=== PATIENT | female | born 1940 | race Caucasian/White ===

== ENCOUNTER 2024-12-23 14:47 | Inpatient (IN) | payer MEDICARE, BC ==
--- NOTE | 2024-12-23 15:59 | ED ---
Abdominal Pain HPI - General Chief Complaint: Abdominal Pain Stated Complaint: Abd Pain/Vomiting Time Seen by Provider: 12/23/24 15:57 Source: patient, family (), RN notes reviewed Mode of arrival: ambulatory Limitations: no limitations - History of Present Illness Initial Comments: 84-year-old female with no reported past medical history presented to the ER for evaluation of abdominal pain. Patient sent by urgent care as she states she had x-ray completed there concerning of a bowel blockage. She reports for the past 2 to 3 days she has had cramping lower abdominal discomfort. She also reports a decreased appetite along with nausea and vomiting. She states she has not had a bowel movement in the past 3 days and is passing a very little amount of gas. She denies any hematochezia or coffee-ground emesis. She denies any previous bowel surgeries. Denies any fevers, chills, chest pain, shortness of breath, dizziness, lightheadedness, urinary complaints. Patient does admit her abdomen appears distended. She has not taken anything for her current symptoms. - Related Data Home Medications Medication Instructions Recorded Confirmed Biotin [Biotin Disolve] 10,000 mcg PO DAILY 12/23/24 12/23/24 Calcium Carbonate [Calcium] 600 mg PO DAILY 12/23/24 12/23/24 L.acidoph,Paracasei, B.lactis 1 cap PO DAILY 12/23/24 12/23/24 [Probiotic] Multivitamins, Thera [Multivitamin 1 tab PO DAILY 12/23/24 12/23/24 (formulary)] Vitamin B Complex 1 cap PO DAILY 12/23/24 12/23/24 flaxseed oiL [Flax Oil] 1,300 mg PO DAILY 12/23/24 12/23/24 Allergies Allergy/AdvReac Type Severity Reaction Status Date / Time amoxicillin Allergy Nausea & Verified 12/23/24 16:47 Vomiting & Diarrhea Review of Systems ROS Statement: Those systems with pertinent positive or pertinent negative responses have been documented in the HPI. ROS Other: All systems not noted in ROS Statement are negative. Past Medical History History of Any Multi-Drug Resistant Organisms: None Reported Past Surgical History: Joint Replacement Additional Past Surgical History / Comment(s): R shoulder replacement 2011 Past Psychological History: No Psychological Hx Reported Smoking Status: Never smoker Past Alcohol Use History: Occasional Past Drug Use History: None Reported General Exam Limitations: no limitations General appearance: alert, in no apparent distress Respiratory exam: Present: normal lung sounds bilaterally. Absent: respiratory distress, wheezes, rales, rhonchi, stridor Cardiovascular Exam: Present: regular rate, normal rhythm, normal heart sounds. Absent: systolic murmur, diastolic murmur, rubs, gallop, clicks GI/Abdominal exam: Present: soft, distended (Mild lower abdomen), tenderness (Lower abdomen), normal bowel sounds Extremities exam: Present: normal inspection, full ROM, normal capillary refill. Absent: tenderness, pedal edema, joint swelling, calf tenderness Neurological exam: Present: alert, oriented X3, CN II-XII intact Skin exam: Present: warm, dry, intact, normal color. Absent: rash Course Vital Signs 12/23/24 12/23/24 15:00 18:34 Temperature 98.9 F Pulse Rate 80 89 Respiratory 18 16 Rate Blood Pressure 138/82 102/64 O2 Sat by Pulse 98 95 Oximetry - Reevaluation(s) Reevaluation #1: 12/23/24 18:20 Case discussed with on-call general surgery, Dr. Nobles. He is agreeable with NG tube placement. He is requesting admission to medicine with general surgery on consult. Reevaluation #2: 12/23/24 18:26 Case discussed with dharmesh Wetzel, for admission Medical Decision Making - Medical Decision Making Was pt. sent in by a medical professional or institution (, PA, LEARNING SUPPORT AIDE, urgent care, hospital, or senior care...) When possible be specific @ -Patient sent by urgent care for evaluation of abdominal pain with concern of blockage on x-ray Did you speak to anyone other than the patient for history (EMS, parent, family, police, friend...)? What history was obtained from this source @ -, at bedside, aiding in HPI and past medical history. Did you review nursing and triage notes (agree or disagree)? Why? @ -I reviewed and agree with nursing and triage notes Were old charts reviewed (outside hosp., previous admission, EMS record, old EKG, old radiological studies, urgent care reports/EKG's, senior care records)? Report findings @ -No old charts were reviewed Differential Diagnosis (chest pain, altered mental status, abdominal pain women, abdominal pain men, vaginal bleeding, weakness, fever, dyspnea, syncope, headache, dizziness, GI bleed, back pain, seizure, CVA, palpatations, mental health, musculoskeletal)? @ -Differential Abdominal Pain Women:Appendicitis, Cholecystitis, diverticulosis, ischemic bowel, pancreatitis, hepatitis, UTI, gastroenteritis, AAA, incarcerated hernia, bowel obstruction, constipation, inflammatory bowel, hepatitis, peptic ulcer disease, splenic infarction, perforated viscus, vulvitis, ovarian torsion, PID, kidney stone, placenta abruption, this is not meant to be an all-inclusive list EKG interpreted by me (3pts min.). @ -As above X-rays interpreted by me (1pt min.). @ -None done CT interpreted by me (1pt min.). @ -CT abdomen pelvis with findings consistent of the distal small bowel obstruction with dilation up to 3.8 cm. Transition point believed to be in the right pelvis. U/S interpreted by me (1pt. min.). @ -None done What testing was considered but not performed or refused? (CT, X-rays, U/S, labs)? Why? @ -None What meds were considered but not given or refused? Why? @ -None Did you discuss the management of the patient with other professionals (professionals i.e. , PA, LEARNING SUPPORT AIDE, lab, RT, psych nurse, manager social media, narrow gauge engineer, teacher, security vehicle patrol officer, shoe parts caser)? Give summary @ -Yes, Case discussed with on-call general surgery, Dr. Nobles, he agrees with NG tube placement. He was requesting medicine admission with surgery on consult. Case also discussed with sound physician, Dr. Malhotra, for admission. Was smoking cessation discussed for >3mins.? @ -No Was critical care preformed (if so, how long)? @ -No Were there social determinants of health that impacted care today? How? (Homelessness, low income, unemployed, alcoholism, drug addiction, transportation, low edu. Level, literacy, decrease access to med. care, residential, rehab)? @ -No Was there de-escalation of care discussed even if they declined (Discuss DNR or withdrawal of care, Hospice)? DNR status @ -No What co-morbidities impacted this encounter? (DM, HTN, Smoking, COPD, CAD, Cancer, CVA, ARF, Chemo, Hep., AIDS, mental health diagnosis, sleep apnea, morbid obesity)? @ -Advanced age Was patient admitted / discharged? Hospital course, mention meds given and route, prescriptions, significant lab abnormalities, going to OR and other pertinent info. @ -Admitted. 84-year-old female presented the ER for evaluation of abdominal pain along with nausea and vomiting x 3 days. Upon arrival vital signs stable. Patient in no signs of acute distress nontoxic-appearing. Abdominal exam remarkable for distention and mild tenderness to lower abdomen. No rebound or guarding. Laboratory studies obtained significant for WBC 8.2, hemoglobin 15.3, sodium 136, potassium 4.0. Lactic 1.3. Urinalysis with 2+ ketone and trace protein likely due to to dehydration given nausea and vomiting. CT ab and p nimo performed showing a distal small bowel obstruction with dilation up to 3.8 cm. Transition point believed to be in the right pelvis. EKG showing sinus rhythm. No acute evidence of infarct or ischemia. Patient provided with IV fluid bolus and Zofran for symptom control in the emergency department. Given CT findings, case was discussed with on-call general surgery, , he is agreeable for consultation with medicine admission. Admission accepted by [facility] physician, Dr. Malhotra. NG tube placed. Maintenance fluids ordered. Patient NPO. Patient started on IV Levaquin and Flagyl for infection prophylaxis given amoxicillin allergy. Blood cultures obtained. Patient and patient's family educated on today's findings, all questions answered. Patient agreeable for admission and admitted in stable condition. Case discussed with ED attending, . Undiagnosed new problem with uncertain prognosis? @ -No Drug Therapy requiring intensive monitoring for toxicity (Heparin, Nitro, Insulin, Cardizem)? @ -No Were any procedures done? @ -No Diagnosis/symptom? @ -Small bowel obstruction Acute, or Chronic, or Acute on Chronic? @ -Acute Uncomplicated (without systemic symptoms) or Complicated (systemic symptoms)? @ -Complicated Side effects of treatment? @ -No Exacerbation, Progression, or Severe Exacerbation? @ -No Poses a threat to life or bodily function? How? (Chest pain, USA, MS, pneumonia, PE, COPD, DKA, ARF, appy, cholecystitis, CVA, Diverticulitis, Homicidal, Suicidal, threat to staff... and all critical care pts) @ -Yes, can lead to bowel perforation - Lab Data Result diagrams: 06/05/25 16:31 12/23/24 16:31 Lab Results 12/23/24 12/23/24 12/23/24 Range/Units 16:31 16:31 16:31 WBC 8.21 (4.50-10.00) 10*3/uL RBC 4.90 (4.10-5.20) 10*6/uL Hgb 15.3 H (12.0-15.0) g/dL Hct 45.0 (37.2-46.3) % MCV 91.8 (80.0-97.0) fL MCH 31.2 (27.0-32.0) pg MCHC 34.0 (32.0-37.0) g/dL Plt Count 269 (140-440) 10*3/uL MPV 9.6 (9.5-12.2) fL Immature Gran % (Auto) 0.2 % Neutrophils % 72.9 % Lymphocytes % 16.7 % Monocytes % 9.7 % Eosinophils % 0.1 % Basophils % 0.4 % Immature Gran # 0.02 (0.00-0.04) 10*3/uL Neutrophils # 5.98 (1.80-7.70) 10*3/uL Lymphocytes # 1.37 (0.90-5.00) 10*3/uL Monocytes # 0.80 (0.20-1.00) 10*3/uL Eosinophils # 0.01 L (0.04-0.35) 10*3/uL Basophils # 0.03 (0.00-0.10) 10*3/uL Sodium 136 L (137-145) mmol/L Potassium 4.0 (3.5-5.1) mmol/L Chloride 95 L (98-107) mmol/L Carbon Dioxide 31 H (22-30) mmol/L Anion Gap 10 mmol/L BUN 36 H (7-17) mg/dL Creatinine 0.61 (0.52-1.04) mg/dL Est GFR (CKD-EPI)AfAm >90 (>60 ml/min/1.73 sqM) Est GFR (CKD-EPI)NonAf 84 (>60 ml/min/1.73 sqM) Glucose 112 H (74-99) mg/dL Plasma Lactic Acid Joo 1.3 (0.7-2.0) mmol/L Calcium 9.5 (8.4-10.2) mg/dL Total Bilirubin 1.2 (0.2-1.3) mg/dL AST 35 (14-36) U/L ALT 33 (4-34) U/L Alkaline Phosphatase 72 (38-126) U/L Total Protein 7.8 (6.3-8.2) g/dL Albumin 4.4 (3.5-5.0) g/dL Lipase 72 (23-300) U/L Urine Color Urine Appearance (Clear) Urine pH (5.0-8.0) Ur Specific [place] (1.001-1.035) Urine Protein (Negative) Urine Glucose (UA) (Negative) Urine Ketones (Negative) Urine Blood (Negative) Urine Nitrite (Negative) Urine Bilirubin (Negative) Urine Urobilinogen (<2.0) mg/dL Ur Leukocyte Esterase (Negative) 12/23/24 Range/Units 17:35 WBC (4.50-10.00) 10*3/uL RBC (4.10-5.20) 10*6/uL Hgb (12.0-15.0) g/dL Hct (37.2-46.3) % MCV (80.0-97.0) fL MCH (27.0-32.0) pg MCHC (32.0-37.0) g/dL Plt Count (140-440) 10*3/uL MPV (9.5-12.2) fL Immature Gran % (Auto) % Neutrophils % % Lymphocytes % % Monocytes % % Eosinophils % % Basophils % % Immature Gran # (0.00-0.04) 10*3/uL Neutrophils # (1.80-7.70) 10*3/uL Lymphocytes # (0.90-5.00) 10*3/uL Monocytes # (0.20-1.00) 10*3/uL Eosinophils # (0.04-0.35) 10*3/uL Basophils # (0.00-0.10) 10*3/uL Sodium (137-145) mmol/L Potassium (3.5-5.1) mmol/L Chloride (98-107) mmol/L Carbon Dioxide (22-30) mmol/L Anion Gap mmol/L BUN (7-17) mg/dL Creatinine (0.52-1.04) mg/dL Est GFR (CKD-EPI)AfAm (>60 ml/min/1.73 sqM) Est GFR (CKD-EPI)NonAf (>60 ml/min/1.73 sqM) Glucose (74-99) mg/dL Plasma Lactic Acid Joo (0.7-2.0) mmol/L Calcium (8.4-10.2) mg/dL Total Bilirubin (0.2-1.3) mg/dL AST (14-36) U/L ALT (4-34) U/L Alkaline Phosphatase (38-126) U/L Total Protein (6.3-8.2) g/dL Albumin (3.5-5.0) g/dL Lipase (23-300) U/L Urine Color Yellow Urine Appearance Clear (Clear) Urine pH 5.5 (5.0-8.0) Ur Specific [place] 1.036 H (1.001-1.035) Urine Protein Trace H (Negative) Urine Glucose (UA) Negative (Negative) Urine Ketones 2+ H (Negative) Urine Blood Negative (Negative) Urine Nitrite Negative (Negative) Urine Bilirubin Negative (Negative) Urine Urobilinogen 2.0 (<2.0) mg/dL Ur Leukocyte Esterase Negative (Negative) - EKG Data -: EKG Interpreted by Me EKG Comments: EKG obtained at 16: 15 showing a sinus rhythm. No ST segment elevations or depressions. No T wave inversions. Ventricular rate 76, CT interval 164, QRS duration 88, QT/QTc 368/398 - Radiology Data Radiology results: report reviewed, image reviewed Disposition Clinical Impression: Small bowel obstruction Disposition: ADMITTED IP TO THIS [facility] Condition: Stable Referrals: None,Stated [Primary Care Provider] - 1-2 days Time of Disposition: 18:21
[2024-12-23] MEDS: SODIUM CHLORIDE 0.9% 1,000 ML IV ONE (16:34)
[2024-12-23] MEDS: ONDANSETRON 4 MG/2 ML VIAL IVP STA (16:37)
[2024-12-23 16:57] LABS: Basophils # (A) 0.03 10*3/uL (0.00-0.10); Basophils % (A) 0.4 %; Eosinophils # (A) 0.01 10*3/uL (0.04-0.35); Eosinophils % (A) 0.1 %; HGB 15.3 g/dL (12.0-15.0); Lymphocytes # (A) 1.37 10*3/uL (0.90-5.00); Lymphocytes % (A) 16.7 %; MCH 31.2 pg (27.0-32.0); MCV 91.8 fL (80.0-97.0); Mean Platelet Volume 9.6 fL (9.5-12.2); Monocytes % (A) 9.7 %; Neutrophils # (A) 5.98 10*3/uL (1.80-7.70); Neutrophils % (A) 72.9 %; Platelet Count 269 10*3/uL (140-440); RDW 12.5 % (11.5-14.5); WBC 8.21 10*3/uL (4.50-10.00)
[2024-12-23 17:21] LABS: ALT 33 U/L (4-34); AST 35 U/L (14-36); African American GFR (CKD) >90 (>60 ml/min/1.73 sqM); Albumin 4.4 g/dL (3.5-5.0); Alkaline Phosphatase 72 U/L (38-126); Anion Gap 10 mmol/L; Blood Urea Nitrogen 36 mg/dL (7-17); Calcium 9.5 mg/dL (8.4-10.2); Carbon Dioxide 31 mmol/L (22-30); Chloride 95 mmol/L (98-107); Glucose 112 mg/dL (74-99); Lipase 72 U/L (23-300); Non-African American GFR(CKD) 84 (>60 ml/min/1.73 sqM); Sodium 136 mmol/L (137-145); Total Bilirubin 1.2 mg/dL (0.2-1.3); Total Protein 7.8 g/dL (6.3-8.2)
[2024-12-23 17:43] LABS: Appearance,Urine Clear (Clear); Bilirubin,Urine Negative (Negative); Blood,Urine Negative (Negative); Color,Urine Yellow; Glucose,Urine (UA) Negative (Negative); Ketones,Urine 2+ (Negative); Leukocyte Esterase,Urine Negative (Negative); Nitrite,Urine Negative (Negative); PH, Urine 5.5 (5.0-8.0); Protein,Urine Trace (Negative); Specific Gravity,Urine 1.036 (1.001-1.035)
[2024-12-23] MEDS: METOCLOPRAMIDE 5 MG/ML 2 ML VIAL IVP STA (17:59)
--- NOTE | 2024-12-23 17:59 | CT ---
EXAMINATION TYPE: CT abdomen pelvis w con DATE OF EXAM: 12/23/2024 COMPARISON: NONE CLINICAL INDICATION: Female, 84 years old with history of abd pain/distention, vomiting/abnormal xray , TECHNIQUE: CT scan of the abdomen and pelvis is performed with IV Contrast, patient injected with 100 mL of Isov ue 300., (none if empty) Oral contrast used: without Oral Contrast (none if empty) CT DLP: 480.3 mGycm, Automated exposure control for dose reduction was used. FINDINGS: Suboptimal study with motion LUNG BASES: No significant abnormality is appreciated. LIVER/GB: No significant abnormality is appreciated. PANCREAS: No significant abnormality is seen. SPLEEN: No significant abnormality is seen. ADRENALS: No significant abnormality is seen. KIDNEYS: A simple appearing 3.2 cm cortical cyst right kidney is present which does not require follo w-up. BOWEL: Fluid distended stomach fluid distended duodenal sweep. Fluid prominent and abnormally distend ed small bowel loops throughout the abdomen. Bowel dilated to 3.8 cm. No abnormal colonic dilatation. Fluid-filled right colon is noted. There is nondilated small bowel loop in the right pelvis. Transit ion point is likely near this level. No free air. UTERUS/ADNEXA: No gross abnormality seen. LYMPH NODES: No greater than 1cm abdominal or pelvic lymph nodes are appreciated. OSSEOUS STRUCTURES: Scoliosis with multilevel spurring and disc space narrowing in the thoracolumbar spine. Multilevel spondylolisthesis on sagittal images. Moderate to severe narrowing of both hip join ts. OTHER: Moderate calcified plaque of the aorta extends into branch vessels. IMPRESSION: Findings consistent with distal small bowel obstruction. Advise NG tube placement and anish gical evaluation. [facility], , 12/23/2024 5:57 PM
[2024-12-23] MEDS ORDERED: KETOROLAC 15 MG/ML 1 ML VIAL IVP PRN (18:25)
[2024-12-23] MEDS ORDERED: NALOXONE 0.4 MG/ML 1 ML VIAL IV PRN (18:25)
[2024-12-23] MEDS: LIDOCAINE VISCOUS 2% 15 ML CUP MUCOUS MEM STA (19:06)
--- NOTE | 2024-12-23 19:26 | P.CON ---
Consult Note - . Consult date: 12/23/24 Assessment/Plan:: 84-year-old female with no reported past medical history presented to the ER for evaluation of abdominal pain. Patient sent by urgent care as she states she had x-ray completed there concerning of a bowel blockage. She reports for the past 2 to 3 days she has had cramping lower abdominal discomfort. She also reports a decreased appetite along with nausea and vomiting. She states she has not had a bowel movement in the past 3 days and is passing a very little amount of gas. She denies any hematochezia or coffee-ground emesis. She denies any previous bowel surgeries. Denies any fevers, chills, chest pain, shortness of breath, dizziness, lightheadedness, urinary complaints. Patient does admit her abdomen appears distended. She has not taken anything for her current symptoms. CT-AP shows evidence for SBO with Transition Point. Review of Systems ROS Statement: Those systems with pertinent positive or pertinent negative responses have been documented in the HPI. ROS Other: All systems not noted in ROS Statement are negative. Past Medical History History of Any Multi-Drug Resistant Organisms: None Reported Past Surgical History: Joint Replacement Additional Past Surgical History / Comment(s): R shoulder replacement 2011 Past Psychological History: No Psychological Hx Reported Smoking Status: Never smoker Past Alcohol Use History: Occasional Past Drug Use History: None Reported General Exam Limitations: no limitations General appearance: alert, in no apparent distress Respiratory exam: Present: normal lung sounds bilaterally. Absent: respiratory distress, wheezes, rales, rhonchi, stridor Cardiovascular Exam: Present: regular rate, normal rhythm, normal heart sounds. Absent: systolic murmur, diastolic murmur, rubs, gallop, clicks GI/Abdominal exam: Present: soft, distended (Mild lower abdomen), tenderness (Lower abdomen), normal bowel sounds Extremities exam: Present: normal inspection, full ROM, normal capillary refill. Absent: tenderness, pedal edema, joint swelling, calf tenderness Neurological exam: Present: alert, oriented X3, CN II-XII intact Skin exam: Present: warm, dry, intact, normal color. Absent: rash 84 year old female with Small Bowel Obstruction -NPO -NGT-LIS -IV fluids -Nausea Control -Further Recs to Follow David Nobles [facility] [phone]
[2024-12-23] MEDS: LEVOFLOXACIN 500MG-D5W PMX 500 MG in DEXTROSE/WATER 1 100ML.BAG IVPB STA (19:56)
[2024-12-23] MEDS: SODIUM CHLORIDE 0.9% 1,000 ML IV SCH (19:56)
[2024-12-23] MEDS ORDERED: ACETAMINOPHEN TAB 325 MG TAB PO PRN (19:58)
--- NOTE | 2024-12-23 20:18 | XR ---
EXAMINATION TYPE: XR chest 1V confirm line plcmt DATE OF EXAM: 12/23/2024 7:42 PM COMPARISON: None CLINICAL INDICATION: Female, 84 years old with history of NG tube placement; [facility] TECHNIQUE: XR chest 1V confirm line plcmt Frontal view of the chest. FINDINGS: Lungs/Pleura: There is no evidence of pleural effusion, focal consolidation, or pneumothorax. Pulmonary vascularity: Unremarkable. Heart/mediastinum: Cardiomediastinal silhouette is unremarkable. Atherosclerotic calcifications are seen in the aorta. Musculoskeletal: No acute osseous pathology. Right shoulder arthroplasty appears intact. Other findings: None Lines/Tubes: Nasogastric tube with its distal tip and side-port projecting under the diaphragm. IMPRESSION: 1. Nasogastric tube in satisfactory position. 2. No acute cardiopulmonary disease/process. [facility], , 12/23/2024 8:16 PM
--- NOTE | 2024-12-23 20:52 | P.HPIM ---
History of Present Illness H&P Date: 12/23/24 History of present illness; 84-year-old female without reported PMH presents to the Emergency Department for evaluation of abdominal pain. She originally presented to an urgent care and states that she had an x-ray that was completed there which showed concern for a possible bowel blockage. She states she has been having pain for the past 2-3 days which she describes as cramping. Additionally, she endorses having a decrease in appetite as well as nausea and vomiting and has not had a bowel mov ement over the past 3 days with minimal flatus. She denies any previous bowel surgeries. Denies hematochezia, coffee-ground emesis, fevers, chills, chest pain, shortness of breath, dizziness, lightheadedness, changes in urinary habits. Social history: - Smoking history: Remote history, quit 60+ years ago - Alcohol use: Socially - Recreational drug use: Denies Labratory review: - WBCs 8.21, hemoglobin 15.3, hematocrit 45.0, platelet 261; sodium 136, potassium 4.0, chloride 95, bicarb 31, BUN 36, creatinine 0.61, lactic acid 1.3, calcium 9.5, total bilirubin 1.2, AST 35, ALT 33, alkaline phosphatase 72, lipase 72 - Urinalysis unremarkable Imaging: - CT abdomen/pelvis showed findings consistent with distal small bowel obstruction with bowel dilated to 3.8 cm - EKG done in the ER independently read and interpreted showed heart rate of 76, sinus rhythm, no ST segment elevation or depression seen, no T-wave inversions seen; QTc 398 Vitals: - On arrival: Blood pressure 138/82, heart rate 80, respiratory rate 18, SpO2 98% on room air - Most recently: Blood pressure 102/64, heart rate 89, respiratory rate 16, SpO2 95% on room air Patient admitted to internal medicine service REVIEW OF SYSTEMS: Pertinent positives and negatives noted in HPI. The rest of the 14-point review of systems is negative. Physical Exam: General: nontoxic, no distress, appears at stated age Derm: warm, dry, intact Head: atraumatic, normocephalic, symmetric Eyes: EOMI, anicteric sclera Mouth: no lip lesion, mucus membranes moist Cardiovascular: S1 S2 reg, no murmur, rubs, or gallops Lungs: CTA bilateral, no rales, no accessory muscle use Abdominal: Soft, mild tenderness to palpation in the mid epigastric area with diffuse distention Extremities: no gross muscle atrophy, no edema, no contractures Neuro: Alert, Oriented, CNII-XII grossly intact, gait normal Psych: well appearing, appropriate affect Assessment and plan 84-year-old female without reported PMH presents to the Emergency Department for evaluation of abdominal pain, after going to an urgent care for this pain and having it noted that she had what appeared to be a bowel obstruction on x-ray completed there. #Distal small bowel obstruction #Nonanion gap metabolic alkalosis, likely secondary to above - CT abdomen/pelvis showed findings consistent with distal small bowel obstruction with bowel dilated to 3.8 cm - Patient made n.p.o. - NG tube decompression - Electrolyte repletion as needed - Continue with NS at 75 cc/h - Continue nausea control with Zofran 4 mg every 6 hours - General Surgery consulted GI prophylaxis: None DVT prophylaxis: Lovenox 40 mg subcu daily The patient is admitted with an anticipated more than than 2 midnight stay for evaluation of distal small bowel obstruction. CODE STATUS: Full code Discussed with: Patient Anticipated discharge place: Home Dictation was produced using [employer] dictation software. please excuse any grammatical, word or spelling errors. Ramakrishna Gutierrez MD PGY-1 IM Attestation : Patient seen and examined with medical staff services manager. Agree with above assessment and plan. Patient is an 84-year-old with no significant past medical or past surgical history presented with abdominal pain intractable nausea and vomiting. CT of the abdomen showing distal small bowel obstruction. Management with NGT to low intermittent suction and consult general surgery. Continue with antiemetics as needed. Will continue with IV fluid hydration at rate of 75 cc/h. Time spent : 55 min Past Medical History History of Any Multi-Drug Resistant Organisms: None Reported Past Surgical History: Joint Replacement Additional Past Surgical History / Comment(s): R shoulder replacement 2011 Past Psychological History: No Psychological Hx Reported Smoking Status: Never smoker Past Alcohol Use History: Occasional Past Drug Use History: None Reported Medications and Allergies Home Medications Medication Instructions Recorded Confirmed Type Biotin [Biotin Disolve] 10,000 mcg PO DAILY 12/23/24 12/23/24 History Calcium Carbonate [Calcium] 600 mg PO DAILY 12/23/24 12/23/24 History L.acidoph,Paracasei, B.lactis 1 cap PO DAILY 12/23/24 12/23/24 History [Probiotic] Multivitamins, Thera [Multivitamin 1 tab PO DAILY 12/23/24 12/23/24 History (formulary)] Vitamin B Complex 1 cap PO DAILY 12/23/24 12/23/24 History flaxseed oiL [Flax Oil] 1,300 mg PO DAILY 12/23/24 12/23/24 History Allergies Allergy/AdvReac Type Severity Reaction Status Date / Time amoxicillin Allergy Nausea & Verified 12/23/24 16:47 Vomiting & Diarrhea ibuprofen Allergy Rash/Hives Verified 12/23/24 19:58 Physical Exam Vitals: Vital Signs Temp Pulse Resp BP Pulse Ox 12/23/24 18:34 89 16 102/64 95 12/23/24 15:00 98.9 F 80 18 138/82 98 Intake and Output 12/23/24 12/23/24 12/23/24 06:59 14:59 22:59 Other: Weight 64.41 kg Results CBC & Chem 7: 12/23/24 16:31 12/23/24 16:31 Labs: Abnormal Lab Results - Last 24 Hours (Table) 12/23/24 12/23/24 12/23/24 Range/Units 16:31 16:31 17:35 Hgb 15.3 H (12.0-15.0) g/dL Eosinophils # 0.01 L (0.04-0.35) 10*3/uL Sodium 136 L (137-145) mmol/L Chloride 95 L (98-107) mmol/L Carbon Dioxide 31 H (22-30) mmol/L BUN 36 H (7-17) mg/dL Glucose 112 H (74-99) mg/dL Ur Specific [place] 1.036 H (1.001-1.035) Urine Protein Trace H (Negative) Urine Ketones 2+ H (Negative)
[2024-12-23] MEDS: metroNIDAZOLE-NS PMX 500 MG in SALINE 1 100ML.BAG IVPB STA (22:46)
[2024-12-24] MEDS: ONDANSETRON 4 MG/2 ML VIAL IVP PRN (01:59)
--- NOTE | 2024-12-24 04:10 | XR ---
EXAM: XR Chest, 1 View CLINICAL HISTORY: ITS.REASON XR Reason: NG placement confirmation TECHNIQUE: Frontal view of the chest. COMPARISON: No relevant prior studies available. IMPRESSION: NG tube in good position.
[2024-12-24] MEDS: ENOXAPARIN 40 MG/0.4 ML SYRINGE SQ SCH (08:06)
--- NOTE | 2024-12-24 13:58 | P.PN ---
Subjective Progress Note Date: 12/24/24 SURGICAL PROGRESS NOTE CHIEF COMPLAINT: SBO HISTORY OF PRESENT ILLNESS: Patient reports that she is feeling better. She reports abdominal pain resolved. She denies any nausea or vomiting. She did pull her NG tube out. She reports the NG tube has been bothering her. She denies any flatus or bowel movement. She does have a family history of a father and sister with colon cancer. Last colonoscopy possibly within the last 2 years or greater. She denies any prior abdominal surgeries. Afebrile. WBC 8.21 PHYSICAL EXAM: VITAL SIGNS: Reviewed. GENERAL: Well-developed in no acute distress. ABDOMEN: Soft. Mildly distended. Nontender NEUROLOGIC: Alert and oriented. Cranial nerves II through XII grossly intact. ASSESSMENT: 1. Small bowel obstruction PLAN: - Small bowel follow-through with Gastrografin ordered for diagnostic and therapeutic management of SBO - Keep patient n.p.o. - Okay to keep NG tube out at this time - Encourage patient to ambulate - Continue IV fluids - Daughter at bedside reports that there is suspicion that her mother does have dementia Physician Commercial [employer] Helper note has been reviewed by physician. Signing provider agrees with the documented findings, assessment, and plan of care. Attestation Patient seen and examined at bedside. Presented with chief complaint of abdominal pain, nausea and vomiting. She did pull out her nasogastric tube. No surgical history with finding of concern for small bowel obstruction. Recommended small bowel follow-through with Gastrografin. Continue n.p.o. status. As patient is refusing to replace nasogastric tube, we will keep it out at this time. I did guidance counselor her on advantage of having nasogastric decompression in her current situation. Continue IV fluids. Will follow small bowel follow-through results. Miesha Aviles DO Objective - Vital Signs Vital signs: Vital Signs Temp 97.8 F 12/24/24 06:50 Pulse 62 12/24/24 06:50 Resp 18 12/24/24 06:50 BP 111/67 12/24/24 06:50 Pulse Ox 95 12/24/24 06:50 FiO2 Intake & Output 12/23/24 12/24/24 12/24/24 18:59 06:59 18:59 Weight 64.41 kg 64.41 kg Other: Voiding Method Toilet Toilet - Labs CBC & Chem 7: 12/23/24 16:31 12/23/24 16:31 Labs: Abnormal Lab Results - Last 24 Hours (Table) 12/23/24 12/23/24 12/23/24 Range/Units 16:31 16:31 17:35 Hgb 15.3 H (12.0-15.0) g/dL Eosinophils # 0.01 L (0.04-0.35) 10*3/uL Sodium 136 L (137-145) mmol/L Chloride 95 L (98-107) mmol/L Carbon Dioxide 31 H (22-30) mmol/L BUN 36 H (7-17) mg/dL Glucose 112 H (74-99) mg/dL Ur Specific [place] 1.036 H (1.001-1.035) Urine Protein Trace H (Negative) Urine Ketones 2+ H (Negative)
--- NOTE | 2024-12-24 14:13 | P.PN ---
Subjective Progress Note Date: 12/24/24 Subjective: Patient seen and examined at bedside. No acute events overnight. She did pull out her NG tube, denies any abdominal pain, nausea, vomiting. No return of bowel function yet. Pertinent positives and negatives as discussed above, a complete review of systems was performed and all other systems are negative. Vitals Signs Reviewed. General: Nontoxic, no distress, appears at stated age Derm: Warm, dry Head: Atraumatic, normocephalic, symmetric Eyes: EOMI, no lid lag, anicteric sclera Mouth: No lip lesion, mucus membranes moist Cardiovascular: S1S2 reg, no murmur Lungs: CTA bilateral, no rhonchi, no rales, no accessory muscle use Abdominal: Soft, distended, nontender to palpation, no guarding, no appreciable organomegaly Ext: No gross muscle atrophy, no edema, no contractures Neuro: CN II-XI grossly intact, no focal neuro deficits Psych: Alert, oriented, appropriate affect Data Reviewed Today: Pertinent Labs: No new labs Imaging: Chest x-ray independently interpreted from this morning, shows NG tube in good position. Assessment and Plan: Active: Small bowel obstruction - Patient currently n.p.o. - General Surgery following, recommending small bowel follow-through - Continue on normal saline 75 cc an hour, IV Zofran as needed for nausea vomiting, oral Tylenol as needed for pain Metabolic alkalosis - Repeat BMP tomorrow DVT ppx: Lovenox Code status: Full code Anticipated discharge place: Pending clinical course Anticipated discharge time: Pending clinical course Objective - Vital Signs Vital signs: Vital Signs Temp 97.8 F 12/24/24 06:50 Pulse 62 12/24/24 06:50 Resp 18 12/24/24 06:50 BP 111/67 12/24/24 06:50 Pulse Ox 95 12/24/24 06:50 FiO2 Intake & Output 12/23/24 12/24/24 12/24/24 18:59 06:59 18:59 Weight 64.41 kg 64.41 kg Other: Voiding Method Toilet Toilet - Labs CBC & Chem 7: 12/23/24 16:31 12/23/24 16:31 Labs: Abnormal Lab Results - Last 24 Hours (Table) 12/23/24 12/23/24 12/23/24 Range/Units 16:31 16:31 17:35 Hgb 15.3 H (12.0-15.0) g/dL Eosinophils # 0.01 L (0.04-0.35) 10*3/uL Sodium 136 L (137-145) mmol/L Chloride 95 L (98-107) mmol/L Carbon Dioxide 31 H (22-30) mmol/L BUN 36 H (7-17) mg/dL Glucose 112 H (74-99) mg/dL Ur Specific [place] 1.036 H (1.001-1.035) Urine Protein Trace H (Negative) Urine Ketones 2+ H (Negative)
--- NOTE | 2024-12-24 16:35 | FL ---
EXAMINATION TYPE: FL small bowel follow through DATE OF EXAM: 12/24/2024 3:01 PM COMPARISON: CT abdomen pelvis most recent from 12/23/2024 CLINICAL INDICATION:Female, 84 years old with history of sbo; TECHNIQUE: The procedure was explained and patient history elicited. All patient questions were ans wered prior to start of procedure. A supervisor central supply radiograph of the abdomen was also reviewed. The patient was asked to ingest liquid Gastrografin and incremental frontal abdominal radiographs were then taken until contrast was visualized in the cecum. FINDINGS: The supervisor central supply abdominal radiograph demonstrates a normal bowel gas pattern without dilated loops of small or large bowel. There is no evidence of organomegaly or pneumoperitoneum. No abnormal calcifications . The visualized osseous structures are intact. Contrast is seen extending from the duodenojejunal junction into the cecum after 1-3 hours, which is within the expected time period. The small bowel follows normal distribution and contour without any evidence of extraluminal or intraluminal irregularity. There is no displacement of bowel loops or e xtraluminal extravasation of contrast material. Small bowel mucosal folds are felt to be within lindsay l limits. IMPRESSION: Normal detailed small bowel examination. [facility], Workstation: [facility], 12/24/2024 4:32 PM
[2024-12-25 08:01] VITALS: BP 137/79; PULSE 74; RESP 16; TEMP 97.5
--- NOTE | 2024-12-25 11:52 | P.PN ---
Subjective Progress Note Date: 12/25/24 Patient seen and examined at bedside. Doing well. Had multiple bowel movements after small bowel follow-through study. Objective - Vital Signs Vital signs: Vital Signs Temp 97.5 F L 12/25/24 07:00 Pulse 74 12/25/24 07:00 Resp 16 12/25/24 07:00 BP 137/79 12/25/24 07:00 Pulse Ox 94 L 12/25/24 07:00 FiO2 Intake & Output 12/24/24 12/25/24 12/25/24 18:59 06:59 18:59 Intake Total 1560 Balance 1560 Intake: Oral 1560 Other: Voiding Method Toilet Toilet # Voids 4 5 # Bowel Movements 2 - Constitutional General appearance: Present: cooperative - Respiratory Details: No difficulty with respiration - Gastrointestinal Gastrointestinal Comment(s): Soft, nontender, nondistended, no rebound, no guarding - Labs CBC & Chem 7: 12/23/24 16:31 12/23/24 16:31 Labs: Microbiology - Last 24 Hours (Table) 12/23/24 19:20 Blood Culture - Preliminary Blood Assessment and Plan Plan: 84-year-old female with small bowel obstruction that appears to have resolved. Diet can be advanced from clear liquid diet to regular diet. Surgically stable for discharge as patient is requesting discharge.
--- NOTE | 2024-12-25 12:15 | P.DS ---
Providers Date of admission: 12/23/24 18:42 Expected date of discharge: 12/25/24 Attending physician: Primo Malhotra Consults: 12/23/24 18:25 Consult Physician Urgent Consulting Provider: David Nobles Consult Reason/Comments: SBO Do you want consulting provider notified?: Already Contacted Primary care physician: Stated None Hospital Course: Discharge Diagnosis: Small bowel obstruction Metabolic alkalosis Hospital Course: 84-year-old female without reported PMH presents to the Emergency Department for evaluation of abdominal pain. Labratory review: - WBCs 8.21, hemoglobin 15.3, hematocrit 45.0, platelet 261; sodium 136, potassium 4.0, chloride 95, bicarb 31, BUN 36, creatinine 0.61, lactic acid 1.3, calcium 9.5, total bilirubin 1.2, AST 35, ALT 33, alkaline phosphatase 72, lipase 72 - Urinalysis unremarkable Imaging: - CT abdomen/pelvis showed findings consistent with distal small bowel obstruction with bowel dilated to 3.8 cm - EKG done in the ER independently read and interpreted showed heart rate of 76, sinus rhythm, no ST segment elevation or depression seen, no T-wave inversions seen; QTc 398 Vitals: - On arrival: Blood pressure 138/82, heart rate 80, respiratory rate 18, SpO2 98% on room air Patient was seen by general surgery. Small bowel follow-through showed no obstruction. Patient now having bowel movements. Tolerating oral intake. Patient seen and examined at bedside. Vital signs reviewed and stable. General: Nontoxic, no distress, appears at stated age Derm: Warm, dry Head: Atraumatic, normocephalic, symmetric Eyes: EOMI, no lid lag, anicteric sclera Mouth: No lip lesion, mucus membranes moist Cardiovascular: S1S2 reg, no murmur Lungs: CTA bilateral, no rhonchi, no rales, no accessory muscle use Abdominal: Soft, nontender to palpation, no guarding, no appreciable organomegaly Ext: No gross muscle atrophy, no edema, no contractures Neuro: CN II-XI grossly intact, no focal neuro deficits Psych: Alert, oriented, appropriate affect A total of 36 minutes of time were spent preparing this complex discharge summary. Patient was discharged on 12/25/2024 at 1205. Patient Condition at Discharge: Stable Plan - Discharge Summary Discharge Rx Participant: No New Discharge Prescriptions: Continue Multivitamins, Thera [Multivitamin (formulary)] 1 tab PO DAILY Biotin [Biotin Disolve] 10,000 mcg PO DAILY flaxseed oiL [Flax Oil] 1,300 mg PO DAILY Vitamin B Complex 1 cap PO DAILY Calcium Carbonate [Calcium] 600 mg PO DAILY L.acidoph,Paracasei, B.lactis [Probiotic] 1 cap PO DAILY Discharge Medication List Biotin [Biotin Disolve] 10,000 mcg PO DAILY 12/23/24 [History] Calcium Carbonate [Calcium] 600 mg PO DAILY 12/23/24 [History] L.acidoph,Paracasei, B.lactis [Probiotic] 1 cap PO DAILY 12/23/24 [History] Multivitamins, Thera [Multivitamin (formulary)] 1 tab PO DAILY 12/23/24 [History] Vitamin B Complex 1 cap PO DAILY 12/23/24 [History] flaxseed oiL [Flax Oil] 1,300 mg PO DAILY 12/23/24 [History] Follow up Appointment(s)/Referral(s): [facility] [NON-STAFF] - 1 Week None,Stated [Primary Care Provider] - 1-2 days Miesha Aviles DO [Doctor of Osteopathic Medicine] - 1 Week Patient Instructions/Handouts: Bowel Obstruction (DC) Activity/Diet/Wound Care/Special Instructions: Please see PCP and surgery. Discharge Disposition: HOME SELF-CARE
== END 2024-12-25 13:50 | disposition home or self-care (01) | DRG 389 ==
LOC: EC 14:47 → 4SSUR 18:42
PROVIDERS: ADMIT Student in an Organized Health Care Education/Training Program; ATTEND Student in an Organized Health Care Education/Training Program
PROC: 0D9670Z Drainage of Stomach with Drainage Device, Via Natural or Artificial Opening (ICD-10-PCS; principal; 2024-12-23)
DX: K56.609 Unspecified intestinal obstruction, unspecified as to partial versus complete obstruction (principal); E87.3 Alkalosis; Z88.6 Allergy status to analgesic agent; Z88.0 Allergy status to penicillin; Z96.611 Presence of right artificial shoulder joint; Z87.891 Personal history of nicotine dependence; Z79.899 Other long term (current) drug therapy
CPT/HCPCS: 36415; 74177; 74250; 80053; 81003; 83605; 83690; 85025; 87040; 93005; 96361; 96365; 96366; 96367; 96375; 99285